=== PATIENT | male | born 1935 | race Two or more races ===

== ENCOUNTER 2020-06-17 19:55 | Inpatient (IN) | payer OTHER ==
[~2020-06-17] VITALS: Ht 193 cm; Wt 83.9 kg
[2020-06-18 00:36] LABS: BASOPHILS % 0.1 % (0.0-2.0); HEMATOCRIT. 44.6 % (42.0-52.0); LYMPHOCYTES % 7.2 % (20.0-50.0); MEAN CORPUSCULAR HEMOGLOBIN 31.4 pg (28.0-32.0); MEAN CORPUSCULAR VOLUME 93.4 fL (80.0-94.0); MEAN PLATELET VOLUME 8.3 fl (7.4-10.4); MONOCYTES % 7.5 % (2.0-8.0); NEUTROPHILS % 85.2 % (40.0-76.0); PLATELET 272 x1000/uL (130-400); RED BLOOD CELL COUNT 4.77 mill/uL (4.7-6.1); RED CELL DISTRIBUTION WIDTH 14.1 % (11.6-14.6)
[2020-06-18 00:43] LABS: CHLORIDE 100 mEq/L (98-107)
[2020-06-18] MEDS ORDERED: SODIUM CHLORIDE 0.9% 1000ML BAG (SEPSIS BOLUS) IV ONE (01:15)
[2020-06-18 01:17] LABS: INR 1.1; PROTHROMBIN TIME 11.9 sec (9.6-11.0)
[2020-06-18] MEDS ORDERED: ENOXAPARIN 100MG/ML SYR SUBCUT SCH (05:00)
[2020-06-18 05:32] LABS: CLARITY URINE CLOUDY (CLEAR); COLOR URINE YELLOW (YELLOW); KETONES URINE 1+ (NEGATIVE); LEUKOCYTE ESTERASE URINE NEGATIVE (NEGATIVE); NITRITE URINE NEGATIVE (NEGATIVE); OCCULT BLOOD URINE NEGATIVE (NEGATIVE); PROTEIN URINE 2+ (NEGATIVE); SPECIFIC GRAVITY URINE 1.023 (1.005-1.030)
[2020-06-18] MEDS ORDERED: ACETAMINOPHEN 325MG TABLET PO PRN (08:00)
[2020-06-18] MEDS ORDERED: DEXTROSE 50% WATER 50ML SYRINGE IV PRN (08:00)
[2020-06-18] MEDS ORDERED: SODIUM CHLORIDE 0.9% 1,000 ML IV SCH (08:00)
[2020-06-18] MEDS ORDERED: BENZONATATE 100MG CAPSULE PO PRN (08:00)
[2020-06-18] MEDS ORDERED: PIPERACILLIN/TAZOBACTAM 3.375 G in DEXT 5% WATER 100 ML IV SCH (08:00)
[2020-06-18] MEDS ORDERED: ONDANSETRON HCL 4MG/2ML INJ IV PRN (08:00)
[2020-06-18] MEDS: BLOOD SUGAR DIAGNOSTIC STRIP TEST SCH ×4 (09:00→21:58)
[2020-06-18] MEDS: PIPERACILLIN/TAZOBACTAM 2.25 G in DEXTROSE 5% WATER 50 ML IV SCH ×2 (10:50→17:56)
[2020-06-18] MEDS: INSULIN GLARGINE UD 100 UNITS/ML SYR SUBCUT SCH (10:51)
[2020-06-18] MEDS: INSULIN LISPRO 100 UNITS/ML SUBCUT SCH (21:58)
[2020-06-18] MEDS: DEXT 5%/0.45% NACL 1000ML 1,000 ML IV SCH (21:59)
[2020-06-19 05:15] LABS: CHLORIDE 109 mEq/L (98-107)
[2020-06-19 05:18] LABS: BASOPHILS % 0.2 % (0.0-2.0); EOSINOPHILS % 0.4 % (0.0-5.0); HEMATOCRIT. 37.8 % (42.0-52.0); HEMOGLOBIN. 12.9 g/dL (14.0-18.0); LYMPHOCYTES % 8.5 % (20.0-50.0); MEAN CORPUSCULAR HEMOGLOBIN 31.6 pg (28.0-32.0); MEAN CORPUSCULAR VOLUME 92.3 fL (80.0-94.0); MEAN PLATELET VOLUME 8.1 fl (7.4-10.4); MONOCYTES % 5.1 % (2.0-8.0); NEUTROPHILS % 85.8 % (40.0-76.0); PLATELET 259 x1000/uL (130-400); RED CELL DISTRIBUTION WIDTH 13.9 % (11.6-14.6)
[2020-06-19] MEDS: ENOXAPARIN 40MG/0.4ML SYR SUBCUT SCH (09:00)
[2020-06-19] MEDS: ASPIRIN 81MG TABLET PO SCH (09:06)
[2020-06-19] MEDS: PIPERACILLIN/TAZOBACTAM 2.25 G in DEXTROSE 5% WATER 50 ML IV SCH ×2 (09:49→11:00)
[2020-06-19] MEDS: BLOOD SUGAR DIAGNOSTIC STRIP TEST SCH ×4 (10:17→21:23)
[2020-06-19] MEDS: INSULIN LISPRO 100 UNITS/ML SUBCUT SCH ×2 (10:19→18:10)
[2020-06-19] MEDS: INSULIN GLARGINE UD 100 UNITS/ML SYR SUBCUT SCH ×2 (10:58→22:00)
[2020-06-19] MEDS: DEXT 5%/0.45% NACL 1000ML 1,000 ML IV SCH (11:14)
[2020-06-19] MEDS ORDERED: ASPI-1160 PO (15:43)
[2020-06-19] MEDS ORDERED: LIP40 MT (15:43)
[2020-06-19] MEDS ORDERED: AMLO10TA80 MT (15:43)
[2020-06-19] MEDS ORDERED: LANTUSUD SUBCUT (15:43)
[2020-06-19] MEDS ORDERED: CLONIDINE 0.1MG TABLET PO PRN (18:30)
[2020-06-19] MEDS: PIPERACILLIN/TAZOBACTAM 3.375 G in DEXT 5% WATER 100 ML IV SCH (19:12)
[2020-06-19] MEDS: AMLODIPINE 10MG TABLET PO SCH (19:13)
[2020-06-19 19:46] VITALS: BP 106/58
[2020-06-19 20:00] VITALS: BP 151/85
[2020-06-19] MEDS ORDERED: METF-873 MT (20:12)
[2020-06-19] MEDS: ATORVASTATIN CALCIUM 40MG TABLET PO SCH (22:19)
[2020-06-20] VITALS: BP 140/73
[2020-06-20] MEDS: DEXT 5%/0.45% NACL 1000ML 1,000 ML IV SCH (00:10)
[2020-06-20] MEDS: PIPERACILLIN/TAZOBACTAM 3.375 G in DEXT 5% WATER 100 ML IV SCH ×4 (00:46→17:47)
[2020-06-20] MEDS: INSULIN LISPRO 100 UNITS/ML SUBCUT SCH ×5 (00:47→23:36)
[2020-06-20 04:00] VITALS: BP 124/69
[2020-06-20] MEDS: BLOOD SUGAR DIAGNOSTIC STRIP TEST SCH ×4 (06:12→21:00)
[2020-06-20 08:00] VITALS: BP 128/75
[2020-06-20] MEDS: ASPIRIN 81MG TABLET PO SCH (11:40)
[2020-06-20] MEDS: ENOXAPARIN 40MG/0.4ML SYR SUBCUT SCH (11:40)
[2020-06-20] MEDS: AMLODIPINE 10MG TABLET PO SCH (11:41)
[2020-06-20] MEDS: INSULIN GLARGINE UD 100 UNITS/ML SYR SUBCUT SCH ×2 (11:42→23:37)
[2020-06-20 12:00] VITALS: BP 154/83
[2020-06-20 16:00] VITALS: BP 154/81
[2020-06-20 20:00] VITALS: BP 145/83
[2020-06-20] MEDS: ATORVASTATIN CALCIUM 40MG TABLET PO SCH (23:37)
[2020-06-21] MEDS: BLOOD SUGAR DIAGNOSTIC STRIP TEST SCH ×4 (07:40→21:58)
[2020-06-21 08:00] VITALS: BP 141/81
[2020-06-21] MEDS: INSULIN LISPRO 100 UNITS/ML SUBCUT SCH ×4 (08:10→21:00)
[2020-06-21] MEDS: PIPERACILLIN/TAZOBACTAM 3.375 G in DEXT 5% WATER 100 ML IV SCH ×5 (09:18→18:01)
[2020-06-21] MEDS: AMLODIPINE 10MG TABLET PO SCH (09:18)
[2020-06-21] MEDS: ENOXAPARIN 40MG/0.4ML SYR SUBCUT SCH (09:18)
[2020-06-21] MEDS: ASPIRIN 81MG TABLET PO SCH (09:18)
[2020-06-21] MEDS: INSULIN GLARGINE UD 100 UNITS/ML SYR SUBCUT SCH ×2 (11:47→22:22)
[2020-06-21 12:00] VITALS: BP 148/89
[2020-06-21 16:00] VITALS: BP 132/85
[2020-06-21 20:00] VITALS: BP 124/71
[2020-06-21] MEDS: ATORVASTATIN CALCIUM 40MG TABLET PO SCH (21:58)
[2020-06-22] VITALS: BP 132/77
[2020-06-22] MEDS: PIPERACILLIN/TAZOBACTAM 3.375 G in DEXT 5% WATER 100 ML IV SCH ×4 (00:12→20:10)
[2020-06-22 04:00] VITALS: BP 124/82
[2020-06-22] MEDS: BLOOD SUGAR DIAGNOSTIC STRIP TEST SCH ×4 (06:39→21:57)
[2020-06-22 08:00] VITALS: BP 124/76
[2020-06-22] MEDS: INSULIN LISPRO 100 UNITS/ML SUBCUT SCH ×4 (08:10→22:03)
[2020-06-22 10:00] VITALS: BP 119/65
[2020-06-22] MEDS: ASPIRIN 81MG TABLET PO SCH (10:04)
[2020-06-22] MEDS: AMLODIPINE 10MG TABLET PO SCH (10:04)
[2020-06-22] MEDS: ENOXAPARIN 40MG/0.4ML SYR SUBCUT SCH (10:05)
[2020-06-22] MEDS: INSULIN GLARGINE UD 100 UNITS/ML SYR SUBCUT SCH (11:05)
[2020-06-22 20:00] VITALS: BP 142/80
[2020-06-22] MEDS: ATORVASTATIN CALCIUM 40MG TABLET PO SCH (20:22)
[2020-06-23] MEDS: INSULIN GLARGINE UD 100 UNITS/ML SYR SUBCUT SCH ×2 (00:59→10:42)
[2020-06-23] MEDS: BLOOD SUGAR DIAGNOSTIC STRIP TEST SCH ×4 (06:55→21:00)
[2020-06-23] MEDS: INSULIN LISPRO 100 UNITS/ML SUBCUT SCH ×4 (06:55→22:35)
[2020-06-23 08:00] VITALS: BP 146/74
[2020-06-23] MEDS: ENOXAPARIN 40MG/0.4ML SYR SUBCUT SCH (10:25)
[2020-06-23] MEDS: ASPIRIN 81MG TABLET PO SCH (10:25)
[2020-06-23] MEDS: AMLODIPINE 10MG TABLET PO SCH (10:25)
[2020-06-23] MEDS: DOCUSATE SODIUM 250MG CAPSULE PO SCH (18:04)
[2020-06-23 20:46] VITALS: BP 130/75
[2020-06-23] MEDS: ATORVASTATIN CALCIUM 40MG TABLET PO SCH (22:34)
[2020-06-23] MEDS: DEXAMETHASONE 6MG TABLET PO SCH (22:34)
[2020-06-24] MEDS: BLOOD SUGAR DIAGNOSTIC STRIP TEST SCH ×4 (06:39→21:53)
[2020-06-24 08:59] VITALS: BP 125/65
[2020-06-24] MEDS: AMLODIPINE 10MG TABLET PO SCH (10:50)
[2020-06-24] MEDS: DOCUSATE SODIUM 250MG CAPSULE PO SCH (10:50)
[2020-06-24] MEDS: ASPIRIN 81MG TABLET PO SCH (10:51)
[2020-06-24] MEDS: ENOXAPARIN 40MG/0.4ML SYR SUBCUT SCH (10:51)
[2020-06-24] MEDS: INSULIN LISPRO 100 UNITS/ML SUBCUT SCH ×4 (10:51→22:02)
[2020-06-24] MEDS: DEXAMETHASONE 6MG TABLET PO SCH (17:48)
[2020-06-24 20:00] VITALS: BP 126/55
[2020-06-24] MEDS: ATORVASTATIN CALCIUM 40MG TABLET PO SCH (21:53)
[2020-06-24] MEDS: INSULIN GLARGINE UD 100 UNITS/ML SYR SUBCUT SCH (22:03)
[2020-06-25] MEDS: BLOOD SUGAR DIAGNOSTIC STRIP TEST SCH ×4 (07:00→20:18)
[2020-06-25 08:00] VITALS: BP 135/72
[2020-06-25] MEDS: INSULIN LISPRO 100 UNITS/ML SUBCUT SCH ×4 (08:49→21:00)
[2020-06-25] MEDS: ENOXAPARIN 40MG/0.4ML SYR SUBCUT SCH (08:50)
[2020-06-25] MEDS: AMLODIPINE 10MG TABLET PO SCH (08:50)
[2020-06-25] MEDS: ASPIRIN 81MG TABLET PO SCH (08:50)
[2020-06-25] MEDS: DOCUSATE SODIUM 250MG CAPSULE PO SCH (08:50)
[2020-06-25] MEDS: INSULIN GLARGINE UD 100 UNITS/ML SYR SUBCUT SCH ×2 (11:39→22:00)
[2020-06-25] MEDS ORDERED: LACTULOSE 20G/30ML UDC PO NR (17:00)
[2020-06-25] MEDS: DEXAMETHASONE 6MG TABLET PO SCH (18:14)
[2020-06-25 20:00] VITALS: BP 146/77
[2020-06-25] MEDS: ATORVASTATIN CALCIUM 40MG TABLET PO SCH (21:00)
[2020-06-26] MEDS: BLOOD SUGAR DIAGNOSTIC STRIP TEST SCH ×4 (06:34→20:08)
[2020-06-26 08:00] VITALS: BP 150/92
[2020-06-26] MEDS: AMLODIPINE 10MG TABLET PO SCH (08:46)
[2020-06-26] MEDS: DOCUSATE SODIUM 250MG CAPSULE PO SCH (08:46)
[2020-06-26] MEDS: ASPIRIN 81MG TABLET PO SCH (08:46)
[2020-06-26] MEDS: ENOXAPARIN 40MG/0.4ML SYR SUBCUT SCH (08:47)
[2020-06-26] MEDS: INSULIN LISPRO 100 UNITS/ML SUBCUT SCH ×4 (08:48→20:45)
[2020-06-26] MEDS: INSULIN GLARGINE UD 100 UNITS/ML SYR SUBCUT SCH ×2 (11:03→22:14)
[2020-06-26 16:00] VITALS: BP 130/72
[2020-06-26] MEDS: DEXAMETHASONE 6MG TABLET PO SCH (17:12)
[2020-06-26 20:00] VITALS: BP 137/61
[2020-06-26] MEDS: ATORVASTATIN CALCIUM 40MG TABLET PO SCH (20:40)
[2020-06-27] MEDS: BLOOD SUGAR DIAGNOSTIC STRIP TEST SCH ×4 (05:42→20:33)
[2020-06-27 08:00] VITALS: BP 130/73
[2020-06-27] MEDS: ASPIRIN 81MG TABLET PO SCH (09:05)
[2020-06-27] MEDS: AMLODIPINE 10MG TABLET PO SCH (09:05)
[2020-06-27] MEDS: DOCUSATE SODIUM 250MG CAPSULE PO SCH (09:05)
[2020-06-27] MEDS: ENOXAPARIN 40MG/0.4ML SYR SUBCUT SCH (09:06)
[2020-06-27] MEDS: INSULIN LISPRO 100 UNITS/ML SUBCUT SCH ×4 (09:19→22:03)
[2020-06-27 10:11] LABS: BASOPHILS % 0.3 % (0.0-2.0); EOSINOPHILS % 0.1 % (0.0-5.0); HEMATOCRIT. 43.7 % (42.0-52.0); HEMOGLOBIN. 14.5 g/dL (14.0-18.0); LYMPHOCYTES % 15.4 % (20.0-50.0); MEAN CORPUSCULAR VOLUME 93.3 fL (80.0-94.0); MONOCYTES % 7.3 % (2.0-8.0); NEUTROPHILS % 76.9 % (40.0-76.0); PLATELET 229 x1000/uL (130-400); RED BLOOD CELL COUNT 4.69 mill/uL (4.7-6.1); RED CELL DISTRIBUTION WIDTH 14.1 % (11.6-14.6)
[2020-06-27 10:22] LABS: CHLORIDE 106 mEq/L (98-107)
[2020-06-27] MEDS: INSULIN GLARGINE UD 100 UNITS/ML SYR SUBCUT SCH ×2 (10:34→22:04)
[2020-06-27] MEDS: DEXAMETHASONE 6MG TABLET PO SCH (17:44)
[2020-06-27 20:00] VITALS: BP 121/72
[2020-06-27] MEDS: THIAMINE HCL 100MG TABLET PO SCH (21:54)
[2020-06-27] MEDS: ATORVASTATIN CALCIUM 40MG TABLET PO SCH (21:54)
[2020-06-28] MEDS: BLOOD SUGAR DIAGNOSTIC STRIP TEST SCH ×4 (06:08→21:04)
[2020-06-28 08:00] VITALS: BP 148/74
[2020-06-28] MEDS: INSULIN LISPRO 100 UNITS/ML SUBCUT SCH ×4 (08:18→22:03)
[2020-06-28] MEDS: THIAMINE HCL 100MG TABLET PO SCH (10:57)
[2020-06-28] MEDS: DOCUSATE SODIUM 250MG CAPSULE PO SCH (10:57)
[2020-06-28] MEDS: AMLODIPINE 10MG TABLET PO SCH (10:57)
[2020-06-28] MEDS: ENOXAPARIN 40MG/0.4ML SYR SUBCUT SCH (10:58)
[2020-06-28] MEDS: INSULIN GLARGINE UD 100 UNITS/ML SYR SUBCUT SCH ×2 (10:59→22:40)
[2020-06-28] MEDS: ASPIRIN 81MG TABLET PO SCH (11:28)
[2020-06-28] MEDS: DEXAMETHASONE 6MG TABLET PO SCH (18:08)
[2020-06-28 20:00] VITALS: BP 118/66
[2020-06-28] MEDS: ATORVASTATIN CALCIUM 40MG TABLET PO SCH (22:03)
[2020-06-29] MEDS: BLOOD SUGAR DIAGNOSTIC STRIP TEST SCH ×4 (06:17→21:45)
[2020-06-29 06:31] LABS: BASOPHILS % 0.5 % (0.0-2.0); EOSINOPHILS % 0.1 % (0.0-5.0); HEMATOCRIT. 41.3 % (42.0-52.0); HEMOGLOBIN. 13.7 g/dL (14.0-18.0); LYMPHOCYTES % 14.9 % (20.0-50.0); MEAN CORPUSCULAR HEMOGLOBIN 31.2 pg (28.0-32.0); MEAN CORPUSCULAR VOLUME 93.8 fL (80.0-94.0); MEAN PLATELET VOLUME 10.8 fl (7.4-10.4); MONOCYTES % 7.4 % (2.0-8.0); NEUTROPHILS % 77.1 % (40.0-76.0); PLATELET 202 x1000/uL (130-400); RED CELL DISTRIBUTION WIDTH 14.2 % (11.6-14.6)
[2020-06-29 06:42] LABS: CHLORIDE 105 mEq/L (98-107)
[2020-06-29 08:07] VITALS: BP 120/69
[2020-06-29] MEDS: DOCUSATE SODIUM 250MG CAPSULE PO SCH (08:50)
[2020-06-29] MEDS: ENOXAPARIN 40MG/0.4ML SYR SUBCUT SCH (08:50)
[2020-06-29] MEDS: THIAMINE HCL 100MG TABLET PO SCH (08:50)
[2020-06-29] MEDS: ASPIRIN 81MG TABLET PO SCH (08:50)
[2020-06-29] MEDS: AMLODIPINE 10MG TABLET PO SCH (08:51)
[2020-06-29] MEDS: INSULIN LISPRO 100 UNITS/ML SUBCUT SCH ×4 (08:52→21:45)
[2020-06-29] MEDS: INSULIN GLARGINE UD 100 UNITS/ML SYR SUBCUT SCH ×2 (11:12→22:52)
[2020-06-29] MEDS: DEXAMETHASONE 6MG TABLET PO SCH (18:01)
[2020-06-29 20:39] VITALS: BP 124/67
[2020-06-29] MEDS: ATORVASTATIN CALCIUM 40MG TABLET PO SCH (21:40)
[2020-06-30] MEDS: BLOOD SUGAR DIAGNOSTIC STRIP TEST SCH ×4 (06:22→21:29)
[2020-06-30 08:00] VITALS: BP_SYST 123; BP_SYST 140; BP_DIAS 70; BP_DIAS 76
[2020-06-30 08:22] LABS: CHLORIDE 104 mEq/L (98-107)
[2020-06-30] MEDS: INSULIN LISPRO 100 UNITS/ML SUBCUT SCH ×4 (08:24→22:46)
[2020-06-30 08:28] LABS: BASOPHILS % 0.3 % (0.0-2.0); EOSINOPHILS % 0.1 % (0.0-5.0); HEMATOCRIT. 42.7 % (42.0-52.0); HEMOGLOBIN. 14.1 g/dL (14.0-18.0); LYMPHOCYTES % 16.5 % (20.0-50.0); MEAN CORPUSCULAR HEMOGLOBIN 30.8 pg (28.0-32.0); MEAN CORPUSCULAR VOLUME 93.6 fL (80.0-94.0); MEAN PLATELET VOLUME 11.2 fl (7.4-10.4); MONOCYTES % 8.9 % (2.0-8.0); NEUTROPHILS % 74.2 % (40.0-76.0); PLATELET 193 x1000/uL (130-400); RED BLOOD CELL COUNT 4.57 mill/uL (4.7-6.1); RED CELL DISTRIBUTION WIDTH 14.1 % (11.6-14.6)
[2020-06-30] MEDS: ENOXAPARIN 40MG/0.4ML SYR SUBCUT SCH (08:35)
[2020-06-30] MEDS: ASPIRIN 81MG TABLET PO SCH (08:35)
[2020-06-30] MEDS: DOCUSATE SODIUM 250MG CAPSULE PO SCH (08:35)
[2020-06-30] MEDS: THIAMINE HCL 100MG TABLET PO SCH (08:36)
[2020-06-30] MEDS: AMLODIPINE 10MG TABLET PO SCH (08:36)
[2020-06-30] MEDS: INSULIN GLARGINE UD 100 UNITS/ML SYR SUBCUT SCH ×2 (12:36→23:03)
[2020-06-30] MEDS: DEXAMETHASONE 6MG TABLET PO SCH (17:18)
[2020-06-30] MEDS ORDERED: SODIUM POLYSTYRENE SULFONATE 15 G/60 ML BOT PO NR (18:30)
[2020-06-30 20:00] VITALS: BP 122/73
[2020-06-30] MEDS: ATORVASTATIN CALCIUM 40MG TABLET PO SCH (22:43)
[2020-07-01 06:07] LABS: BASOPHILS % 0.2 % (0.0-2.0); CHLORIDE 105 mEq/L (98-107); EOSINOPHILS % 0.1 % (0.0-5.0); HEMATOCRIT. 41.5 % (42.0-52.0); HEMOGLOBIN. 13.6 g/dL (14.0-18.0); LYMPHOCYTES % 15.3 % (20.0-50.0); MEAN CORPUSCULAR HEMOGLOBIN 30.9 pg (28.0-32.0); MEAN PLATELET VOLUME 10.5 fl (7.4-10.4); MONOCYTES % 7.6 % (2.0-8.0); NEUTROPHILS % 76.8 % (40.0-76.0); PLATELET 183 x1000/uL (130-400); RED BLOOD CELL COUNT 4.41 mill/uL (4.7-6.1); RED CELL DISTRIBUTION WIDTH 13.9 % (11.6-14.6)
[2020-07-01] MEDS: BLOOD SUGAR DIAGNOSTIC STRIP TEST SCH ×3 (06:41→17:27)
[2020-07-01 08:00] VITALS: BP 140/74
[2020-07-01] MEDS ORDERED: ENOXAPARIN 40MG/0.4ML SYR SUBCUT SCH (09:00)
[2020-07-01] MEDS: INSULIN LISPRO 100 UNITS/ML SUBCUT SCH ×3 (09:19→17:43)
[2020-07-01] MEDS: ASPIRIN 81MG TABLET PO SCH (09:20)
[2020-07-01] MEDS: AMLODIPINE 10MG TABLET PO SCH (09:20)
[2020-07-01] MEDS: DOCUSATE SODIUM 250MG CAPSULE PO SCH (09:20)
[2020-07-01] MEDS: THIAMINE HCL 100MG TABLET PO SCH (09:21)
[2020-07-01] MEDS: INSULIN GLARGINE UD 100 UNITS/ML SYR SUBCUT SCH (10:55)
[2020-07-01] MEDS ORDERED: SODIUM POLYSTYRENE SULFONATE 15 G/60 ML BOT PO NR (17:00)
[2020-07-01] MEDS: DEXAMETHASONE 6MG TABLET PO SCH (17:27)
[2020-07-01 18:15] VITALS: BP 140/72
[2020-07-01] MEDS ORDERED: INSULIN GLARGINE UD 100 UNITS/ML SYR SUBCUT SCH (22:00)
== END 2020-07-01 19:50 | DRG 177 ==
LOC: ER 19:55 → 7WST 06-18 01:57 → ENRESERV 06-19 13:21 → CANBEDREQ 06-19 16:52 → 7WST 06-19 17:14 → 6WST 06-22 11:19
PROVIDERS: ADMIT Internal Medicine; ATTEND Internal Medicine
DX: U07.1 COVID-19 (principal); E43 Unspecified severe protein-calorie malnutrition; G93.41 Metabolic encephalopathy; J12.82 Pneumonia due to coronavirus disease 2019; N17.0 Acute kidney failure with tubular necrosis; E87.1 Hypo-osmolality and hyponatremia; E87.2 Acidosis; I10 Essential (primary) hypertension; E11.9 Type 2 diabetes mellitus without complications; E87.5 Hyperkalemia; Z91.14 Patient's other noncompliance with medication regimen; Z68.22 Body mass index [BMI] 22.0-22.9, adult; E11.65 Type 2 diabetes mellitus with hyperglycemia; T68.XXXA Hypothermia, initial encounter
CPT/HCPCS: 36415; 70490; 70551; 71045; 80048; 80053; 80061; 82728; 82962; 83036; 83605; 83615; 83880; 84145; 84484; 85025; 86140; 87635; 93005; 96361; 96365; 96366; 96367; 96372; 96374; 96376; 99285; J1650; J1815; J2543; J7060